=== PATIENT | male | born 1990 | race Caucasian/White ===

== ENCOUNTER 2020-08-20 06:43 | Emergency (ER) | payer MEDICAID ==
[~2020-08-20] VITALS: Ht 170.2 cm; Wt 95.3 kg
[2020-08-20 06:49] VITALS: BP 111/72
--- NOTE | 2020-08-20 06:58 | NUR ---
PT AMBULATED TO ER BED 8 W/ STEADY GAIT.
--- NOTE | 2020-08-20 06:59 | NUR ---
29Y M c/c sharp chest pain that radiates to his left arm that started for the first time today at 2am. Pt reports that he did not take any medication to alleviate pain. He denies SOB, edema. Pt placed on gambling monitor and pulse ox, EKG at bedside. NKA Addendum: 08/20/20 at 0719 by [email or web address] 29Y M c/c sharp chest pain that radiates to his left arm that started for the first time today at 2am. Pt reports that he did not take any medication to alleviate pain. He denies SOB, edema. Pt reports pain is intermittent and is currently under controlled. Pt placed on gambling monitor and pulse ox, EKG at bedside. NKA
--- NOTE | 2020-08-20 07:16 | NUR ---
Dr. De Los Santos examining patient.
[2020-08-20] MEDS ORDERED: LIDOCAINE MPF 1% 10 MG/ML VIAL INJ ONE (07:25)
[2020-08-20] MEDS ORDERED: ASPIRIN 81 MG TAB.CHEW PO ONE (07:25)
[2020-08-20] MEDS ORDERED: FAMOTIDINE 20 MG TAB PO ONE (07:25)
--- NOTE | 2020-08-20 07:32 | NUR ---
assistant technician at pt bedside.
--- NOTE | 2020-08-20 07:33 | NUR ---
general maintenance technician at pt bedside.
[2020-08-20 07:43] LABS: BASOPHILS # (AUTO) 0.1 K/uL (0.00-0.22); BASOPHILS % (AUTO) 0.9 % (0.0-2.0); EOSINOPHILS # (AUTO) 0.1 K/uL (0-0.4); EOSINOPHILS % (AUTO) 1.5 % (0.0-4.0); HEMATOCRIT 44.6 % (36-52); HEMOGLOBIN 14.8 g/dL (12.0-18.0); LYMPHOCYTES # (AUTO) 3.3 K/uL (2.0-11.5); LYMPHOCYTES % (AUTO) 45.1 % (20.5-51.1); MEAN CORPUSCULAR HEMOGLOBIN 27 pg (27-31); MEAN CORPUSCULAR HGB CONC 33 g/dL (33-37); MEAN CORPUSCULAR VOLUME 81.7 fL (80-94); MONOCYTES # (AUTO) 0.6 K/uL (0.8-1.0); MONOCYTES % (AUTO) 8.2 % (1.7-9.3); NEUTROPHILS # (AUTO) 3.3 K/uL (1.8-7.7); NEUTROPHILS % (AUTO) 44.3 % (42.2-75.2); PLATELET COUNT (AUTO) 252 K/uL (140-450); RED BLOOD CELL COUNT(AUTO) 5.46 MIL/uL (4.20-6.10); RED CELL DISTRIBUTION WIDTH 14.9 % (11.6-13.7); WHITE BLOOD COUNT (AUTO) 7.4 K/uL (4.8-10.8)
[2020-08-20 08:00] LABS: ALBUMIN 3.8 g/dL (3.4-5.0); ANION GAP 11.4 (8-16); CARBON DIOXIDE 26.6 mmol/L (21-32); CREATININE 1.1 mg/dL (0.6-1.3); TOTAL BILIRUBIN 0.4 mg/dL (0.0-1.0)
--- NOTE | 2020-08-20 08:58 | NUR ---
Dr. De Los Santos at bedside performing procedure.
[2020-08-20] MEDS ORDERED: NAPR-54 PO (09:35)
[2020-08-20 09:46] VITALS: BP 111/72
--- NOTE | 2020-08-20 09:47 | NUR ---
Patient discharged with v/s stable. Written and verbal after care instructions given and explained. Patient alert, oriented and verbalized understanding of instructions. Ambulatory with steady gait. All questions addressed prior to discharge. ID band removed. Patient advised to follow up with PMD. Rx of NAPROXEN 500MG PO BID PRN PAIN X7DAYS given. Patient educated on indication of medication including possible reaction and side effects. Opportunity to ask questions provided and answered.
== END 2020-08-20 09:47 | disposition home or self-care (01) ==
LOC: MED 06:43
DX: M62.830 Muscle spasm of back (principal); R07.9 Chest pain, unspecified; M25.512 Pain in left shoulder
CPT/HCPCS: 36415; 71045; 80053; 84484; 85025; 93005; 99285; J2001